=== PATIENT | female | born 1945 | race Caucasian/White ===

== ENCOUNTER → 2017-03-07 | Outpatient (CLI) | payer MEDICARE ==
[~2017-03-07] MED LIST: CHILDREN'S CLARI5 MG PO; FLONASE ALLERG9.9 ML NAS; FOSAMAX70 M1 PO; NEURONTIN100 MG PO; NORCO 5-325 TA1 EACH PO; OYSTER SHELL C1 EAC3 PO; PREDNISONE10 MG PO; ROBITUSSIN AC 110 ML PO; TRAMADOL HCL50 MG PO; TRAZODONE50 MG PO; VENTOLIN H0.09 MG/AC INH; VITAMIN D1000 IU PO; ZOFRAN4 MG PO
== END | disposition home or self-care (01) ==
LOC: RAD 11:55
DX: M19.032 Primary osteoarthritis, left wrist (principal)

== ENCOUNTER → 2017-03-20 | Outpatient (CLI) | payer MEDICARE | END | disposition home or self-care (01) | LOC: MAMMO 02-13 13:30 → US 02-13 14:00 → MAMMO 12:23 | DX: Z12.31 Encounter for screening mammogram for malignant neoplasm of breast (principal); I70.203 Unspecified atherosclerosis of native arteries of extremities, bilateral legs; M79.661 Pain in right lower leg; Z87.891 Personal history of nicotine dependence ==

== ENCOUNTER → 2017-05-26 | Outpatient (CLI) | payer MEDICARE | END | disposition home or self-care (01) | LOC: ORTHO 02:34 | DX: M19.031 Primary osteoarthritis, right wrist (principal) ==

== ENCOUNTER → 2017-06-17 | Outpatient (CLI) | payer MEDICARE ==
[~2017-06-17] MED LIST changes: +LORCET 5-325 M1 EACH PO; +RA VITAMIN D3 PO; -VITAMIN D1000 IU PO; +VITAMIN D31000 UNI1 PO
[2017-06-17 12:52] LABS: BASO # 0.1 10*3/uL (0.0-0.1); BASO % 0.5 % (0.0-1.0); EOS # 0.2 10*3/uL (0.0-0.4); EOS % 1.9 % (1.0-4.0); HEMATOCRIT 36.2 % (37.0-47.0); IG # 0.1 10*3/uL (0.0-0.1); LYMPH # 2.2 10*3/uL (1.3-4.4); LYMPH % 23.3 % (27.0-41.0); MEAN CELL VOLUME 92.8 fl (81.0-99.0); MEAN CORPUSCULAR HGB 30.8 pg (27.0-31.0); MEAN CORPUSCULAR HGB CONC 33.1 g/dl (33.0-37.0); MEAN PLATELET VOLUME 10.5 fl (9.6-12.3); MONO # 0.8 10*3/uL (0.1-1.0); MONO % 8.9 % (3.0-9.0); NEUT # 6.2 10*3/uL (2.3-7.9); NEUT % 64.9 % (47.0-73.0); PLATELET COUNT AUTOMATED 204 10*3/uL (130-400); RED CELL DISTRI WIDTH 13.6 % (0-14.5); WHITE BLOOD COUNT 9.5 10*3/uL (4.8-10.8)
[2017-06-17 13:20] LABS: BUN 18 mg/dl (7-24); CARBON DIOXIDE 28 mmol/L (21-32); CHLORIDE 108 mmol/L (98-107); EST GLOM FILT AFRICAN AMERICAN > 60 ml/min; GLUCOSE 84 mg/dL (65-99); POTASSIUM 3.8 mmol/L (3.5-5.1); SODIUM 138 mmol/L (136-145)
== END | disposition home or self-care (01) ==
LOC: LAB 10:59
PROVIDERS: Orthopaedic Surgery
DX: Z01.818 Encounter for other preprocedural examination (principal); G56.01 Carpal tunnel syndrome, right upper limb; Z87.891 Personal history of nicotine dependence

== ENCOUNTER → 2017-06-26 | Day surgery (SDC) | payer MEDICARE ==
[2017-06-17 11:32] VITALS: BP 121/64
[~2017-06-26] VITALS: Ht 160 cm; Wt 55.8 kg
[2017-06-26 07:02] VITALS: BP 135/65
[2017-06-26 08:09] VITALS: BP 131/68
[2017-06-26 08:40] VITALS: BP 134/73
== END | disposition home or self-care (01) ==
LOC: SDC 06-10 11:00
DX: G56.01 Carpal tunnel syndrome, right upper limb (principal); J44.9 Chronic obstructive pulmonary disease, unspecified; Z90.710 Acquired absence of both cervix and uterus; Z98.890 Other specified postprocedural states; Z80.9 Family history of malignant neoplasm, unspecified; Z87.891 Personal history of nicotine dependence

== ENCOUNTER 2017-10-01 11:47 | Inpatient (IN) | payer MEDICARE ==
[~2017-10-01] VITALS: Ht 160 cm; Wt 64.4 kg
--- NOTE | ~2017-10-01 | CON ---
[place], [place] REPORT OF CONSULTATION NAME: SABINA CABA UNIT #: [id number] ROOM: 406 DOCTOR: MIRI TREVINO MD BIRTHDATE: [birth year] DOS: ATTESTATION. This is an attestation note on a consult by Dr. Heard. IMRI TREVINO MD CM:CONSTR:REPORT OF CONSULTATION 1003 10/03/17 1303 interface
--- NOTE | ~2017-10-01 | CON ---
[place], [place] REPORT OF CONSULTATION [id number] UNIT #: [id number] ROOM: 406 DOCTOR: MARY ELLEN SANCHEZ MD BIRTHDATE: [birth year] DOS: 10/03/2017 HISTORY OF PRESENT ILLNESS: This is a 72-year-old patient who presented with chief complaint of atypical chest pain, underwent investigation. The pain is radiating her to her back and substernal and subxiphoid. Cardiologic workup has been done. Cardiac consultation has been done. PAST MEDICAL HISTORY: Associated with osteopenia and chronic lower back pain. PAST SURGICAL HISTORY: Cataract, hysterectomy, carpal tunnel. SOCIAL HISTORY: Has stopped smoking 4 months ago and she is considering herself and nonsmoker at all. Nonalcohol consumer. FAMILY HISTORY: Multi carcinoma. ALLERGIES: TO SULFA. HOME MEDICATIONS: Home medication was reviewed. The patient has been on antacid medication. She does not recall the name in specifically. On the other hand, she has been on alendronate sodium 70 mg p.o. every week. REVIEW OF SYSTEMS: HEENT: Denies double vision, blurred vision. RESPIRATORY: Denies acute shortness of breath; however, chronically short of breath and COPD pattern. CARDIOVASCULAR: Atypical chest pain, substernal pain. DIGESTIVE SYSTEM: Dyspepsia, epigastric distress. PHYSICAL EXAMINATION: VITAL SIGNS: Stable. HEENT: Head normocephalic, nontraumatic. Eyes: Pupils round, reactive. Sclerae nonicteric. Mouth and buccal mucosa benign. NECK: Supple, no thyromegaly, no cervical lymphadenopathy. CHEST: Symmetric anatomy, equal expansion. Decreased air entry bilaterally. HEART: Normal sinus rhythm, no gallop, no murmur. ABDOMEN: Soft. No hepato-organomegaly. Bowel sounds present. No pulsatile mass. EXTREMITIES: No cyanosis, no pedal edema. NEUROLOGIC: Alert, oriented to time, place, person. Sensory, motor intact. Cranial nerves 2-12 intact. IMPRESSION: Substernal pain, reflux symptomatology on alendronate possibility of Fosamax esophagitis. Other adjunctive diagnoses as outlined above. The patient's cardiac workup in progress. The patient has been found to be anemic that requires workup; however, she had breakfast this morning, full breakfast and she is not doable today and tomorrow, Friday and Friday only and therefore we can organize EGD, endoscopy, colonoscopy as outpatient. H and H at the time of admission was 10 and 33. [place], [place] REPORT OF CONSULTATION NAME: SABINA CABA [facility] #: [id number] UNIT #: [id number] ROOM: [facility] DOCTOR: LAURA LIZARRAGA,MARY ELLEN BIRTHDATE: [birth year] LABORATORY DATA: Chest x-ray, clear. Lipase was within normal limit. Comprehensive metabolic panel, electrolyte balance, liver function tests and troponins were all within normal limits. Her latest basic metabolic panel within normal limit. Her latest H and H 11 and 34 yesterday. PLAN AND DISCUSSION: I have reviewed the CTA of the chest, no aortic dissection, mild wall thickening of the distal esophagus was reported. Therefore, endoscopy as outpatient would be recommended. MARY ELLEN SANCHEZ MD CM:CONSTR:REPORT OF CONSULTATION 1008 10/03/17 1605 interface
[~2017-10-01 11:47] MED LIST changes: -NEURONTIN100 MG PO; +NEURONTIN300 MG PO
[2017-10-01 11:54] VITALS: BP 139/57
[2017-10-01 12:38] LABS: BASO % 0.4 % (0.0-1.0); EOS # 0.3 10*3/uL (0.0-0.4); EOS % 3.7 % (1.0-4.0); HEMOGLOBIN 10.8 g/dl (12.0-16.0); LYMPH # 1.8 10*3/uL (1.3-4.4); LYMPH % 25.1 % (27.0-41.0); MEAN CELL VOLUME 91.7 fl (81.0-99.0); MEAN CORPUSCULAR HGB CONC 32.7 g/dl (33.0-37.0); MONO # 0.8 10*3/uL (0.1-1.0); MONO % 11.6 % (3.0-9.0); NEUT # 4.1 10*3/uL (2.3-7.9); NEUT % 58.6 % (47.0-73.0); PLATELET COUNT AUTOMATED 231 10*3/uL (130-400); RED CELL DISTRI WIDTH 13.2 % (0-14.5); WHITE BLOOD COUNT 7.1 10*3/uL (4.8-10.8)
[2017-10-01 12:47] LABS: ACT PARTIAL THROMBO TIME 24.5 SECONDS (20.8-31.5); INTERNATIONAL NORM RATIO 0.9 (2.0-3.5)
[2017-10-01 12:55] LABS: ALBUMIN 3.4 gm/dl (3.1-4.5); ALKALINE PHOSPHATASE 86 U/L (45-117); BUN 9 mg/dl (7-24); CHLORIDE 110 mmol/L (98-107); CREATININE 0.96 mg/dL (0.55-1.02); POTASSIUM 4.1 mmol/L (3.5-5.1); SGOT/AST 15 IU/L (3-35); SGPT/ALT 20 U/L (12-78); SODIUM 144 mmol/L (136-145); TOTAL PROTEIN 6.6 gm/dL (6.4-8.2)
[2017-10-01 12:57] LABS: TROPONIN I < 0.015 ng/ml (<0.045)
--- NOTE | 2017-10-01 14:04 | NUR ---
AWAITING PATIENT RETURN FROM CT TO TAKE TO FLOOR, REPORT HAS BEEN CALLED
--- NOTE | 2017-10-01 14:35 | NUR ---
A 72, admitted to , under the services of ANATOLIY Garcia MD with a diagnosis of CHEST PAIN R/O ACUTE CO. Chief complaint is SOB. Patient arrived via bed from ER. Monitor applied. Initial assessment completed. Vital signs taken and recorded. ANATOLIY GARCIA MD notified of admission to the unit. Orders received. See assessment for past medical history, medications and allergies. Patient and/or family oriented to unit. [facility] visitation policy reviewed. Clothing/patient valuable form completed. GLORIA REEVES
[2017-10-01 14:40] VITALS: BP 145/86
[2017-10-01] MEDS ORDERED: SYMB160 INH (14:49)
[2017-10-01] MEDS ORDERED: PROAIR HFA8.5 GM INH (14:50)
--- NOTE | 2017-10-01 14:54 | NUR ---
Med rec was updated per [facility]
--- NOTE | 2017-10-01 14:54 | NUR ---
OFFICE STAFF WAS NOTIFIED OF DR. ROSARIO CONSULT. RESPONSE OF NOTIFICATION WAS OK I WILL GIVE IT TO DR TREVINO. GLORIA REEVES
[2017-10-01 16:00] VITALS: BP 137/72
[2017-10-01 20:00] VITALS: BP 140/63
--- NOTE | 2017-10-01 21:37 | NUR ---
MEDICATED WITH TYLENOL FOR COMPLAINTS OF A HEADACHE. WILL MONITOR FOR EFFECTIVENESS. CALL LIGHT IN REACH.
--- NOTE | 2017-10-01 23:45 | NUR ---
TYLENOL EFFECTIVE AT THIS TIME. RESTING IN BED WITH EYES CLOSED. NO SIGNS OR SYMPTOMS OF DISTRESS NOTED. CALL LIGHT IN REACH.
[2017-10-02 00:03] VITALS: BP 106/59
[2017-10-02 06:38] LABS: BASO % 0.6 % (0.0-1.0); EOS # 0.3 10*3/uL (0.0-0.4); EOS % 3.6 % (1.0-4.0); HEMATOCRIT 34.5 % (37.0-47.0); HEMOGLOBIN 11.1 g/dl (12.0-16.0); LYMPH # 1.3 10*3/uL (1.3-4.4); LYMPH % 18.8 % (27.0-41.0); MEAN CORPUSCULAR HGB 30.2 pg (27.0-31.0); MEAN CORPUSCULAR HGB CONC 32.2 g/dl (33.0-37.0); MEAN PLATELET VOLUME 10.5 fl (9.6-12.3); MONO # 0.8 10*3/uL (0.1-1.0); MONO % 11.4 % (3.0-9.0); NEUT # 4.6 10*3/uL (2.3-7.9); PLATELET COUNT AUTOMATED 228 10*3/uL (130-400); RED BLOOD COUNT 3.67 10*6/uL (4.10-5.10); RED CELL DISTRI WIDTH 13.2 % (0-14.5)
[2017-10-02 07:10] LABS: ALBUMIN 3.3 gm/dl (3.1-4.5); BUN 11 mg/dl (7-24); CHLORIDE 108 mmol/L (98-107); POTASSIUM 4.1 mmol/L (3.5-5.1); SGPT/ALT 19 U/L (12-78); SODIUM 142 mmol/L (136-145)
[2017-10-02 07:19] LABS: ALKALINE PHOSPHATASE 77 U/L (45-117); CHOLESTEROL 184 mg/dL (<200); HDL CHOLESTEROL 54 mg/dl (40-60); LDL CHOLESTEROL 104 mg/dL (9-159); PHOSPHOROUS 4.1 mg/dL (2.5-4.9); TOTAL PROTEIN 6.6 gm/dL (6.4-8.2); TRIGLYCERIDES 129 mg/dl (<150); VLDL CHOLESTEROL 26 mg/dL (6-40)
[2017-10-02 07:51] LABS: SGOT/AST 13 IU/L (3-35)
[2017-10-02 08:00] VITALS: BP 126/59
--- NOTE | 2017-10-02 08:30 | NUR ---
Stock And Station Agent in to talk to patient. Patient states lives at HOME ALONE with . There are 10 steps in the home. Physician: DR VICENTE Pharmacy: [facility] [place] Home health services: NONE Patient's level of ADLs: INDEPENDENT Patient has working utilities: YES DME: NONE Follow-up physician's appointment after d/c: PREFERS TO MAKE HER OWN APPT Does patient want to access PORTAL?: Discharge plan HOME. JORDON BELL
[2017-10-02 08:32] LABS: INTERNATIONAL NORM RATIO 0.9 (2.0-3.5)
[2017-10-02 08:45] LABS: VITAMIN D, 25-HYDROXY 29.8 ng/mL (30-100)
[2017-10-02 12:00] VITALS: BP 104/49
[2017-10-02 16:00] VITALS: BP 100/49
[2017-10-02 20:00] VITALS: BP 90/42
--- NOTE | 2017-10-02 20:27 | NUR ---
CALLED DOCTOR CANDELARIO ABOUT PATIENTS BP OF 90/42 MANUAL HE SAID OK NO NEW ORDRES AT THIS TIME.
--- NOTE | 2017-10-02 23:30 | NUR ---
TOOK OVER CARE OF PT AT THIS TIME, ASSESSMENT COMPLETE, RESPIRATIONS EASY AND UNLABORED. NO S/S OF PAIN OR DISTRESS. ALL NEEDS MET, ENCOURAGED USE OF CALL LIGHT.
[2017-10-03 01:11] VITALS: BP 84/48
--- NOTE | 2017-10-03 01:22 | NUR ---
NOTIFIED DR. PALOMINO OF PT LOW BLOOD PRESSURE READING. PT STATES THAT SHE FEELS FINE AND HAS NO OTHER SYMPTOMS. NO NEW ORDERS FROM PHYSICIAN AT THIS TIME. WILL CONTINUE TO MONITOR PT BLOOD PRESSURES AND PHYSICIAN STATES HE WILL BE UP TO SEE HER.
--- NOTE | 2017-10-03 03:00 | NUR ---
PT BLOOD PRESSURE RECHECKED. BP 92/50 AT THIS TIME, DR. PALOMINO AWARE. PT DOES NOT COMPLAIN OF ANY SYMPTOMS ASSOCIATED WITH HYPOTENSION. NO DIZZINESS NOTED. ADVISED TO CHANGE POSITIONS SLOWLY.
--- NOTE | 2017-10-03 06:00 | NUR ---
AM MEDICAITONS TAKEN WITH EASE. NO S/S OF DISTRESS. RESPIRATIONS EASY. PT ALERT ORIENTED AND PLEASANT. AMBULATING TO BATHROOM WITH NO PROBLEMS.
[2017-10-03 07:32] LABS: CHLORIDE 108 mmol/L (98-107); POTASSIUM 3.9 mmol/L (3.5-5.1); SODIUM 141 mmol/L (136-145)
[2017-10-03 07:41] LABS: BUN 16 mg/dl (7-24); CREATININE 1.02 mg/dL (0.55-1.02)
[2017-10-03 08:00] VITALS: BP 84/49
--- NOTE | 2017-10-03 08:19 | NUR ---
DR SANCHEZ NOTIFIED OF A CONSULT FOR ESOPHOGITIS AND DYSPHAGIA.
--- NOTE | 2017-10-03 09:59 | NUR ---
PT RECIEVED BREAKFAST TRAY PRIOR TO BEING TOLD SHE WOULD BE NPO FOR EGD AND WILL NOT BE ABLE TO HAVE THE TEXT TODAY. DR SANCHEZ ASKED TO CONTACT DR GARCIA AND SEE IF THE PT CAN BE SCHEDULED AN OUTPT ON ANOTHER DAY.
--- NOTE | 2017-10-03 10:05 | NUR ---
DR ALIRIO WYNN SHE WOULD TALK TO DR VICENTE TO SEE WHAT THE PLAN OF TREATMENT WILL BE.
[2017-10-03 12:00] VITALS: BP 111/42
[2017-10-03] MEDS ORDERED: PROTONIX40 MG PO (12:32)
[2017-10-03] MEDS ORDERED: Carafate1 GM PO (12:32)
--- NOTE | 2017-10-03 15:35 | NUR ---
Discharge instructions reviewed with patient/family. Patient receptive and verbalizes understanding. Follow-up care arranged. Written instructions given to patient/family. RACHID UFENTES
== END 2017-10-03 15:35 | disposition home or self-care (01) | DRG 392 ==
LOC: ED 11:47 → 4E 13:33 → EDHOLD 13:33 → 4E 13:42
PROVIDERS: Hospitalist; Student in an Organized Health Care Education/Training Program; ADMIT Internal Medicine
DX: K21.0 Gastro-esophageal reflux disease with esophagitis (principal); D64.9 Anemia, unspecified; R13.10 Dysphagia, unspecified; R07.2 Precordial pain; G56.00 Carpal tunnel syndrome, unspecified upper limb; M54.9 Dorsalgia, unspecified; E55.9 Vitamin D deficiency, unspecified; M85.80 Other specified disorders of bone density and structure, unspecified site; F17.210 Nicotine dependence, cigarettes, uncomplicated; G89.29 Other chronic pain; Z90.710 Acquired absence of both cervix and uterus; Z80.9 Family history of malignant neoplasm, unspecified; Z88.2 Allergy status to sulfonamides; Z79.51 Long term (current) use of inhaled steroids; Z79.899 Other long term (current) drug therapy; Z98.49 Cataract extraction status, unspecified eye

== ENCOUNTER → 2017-11-04 | Outpatient (CLI) | payer MEDICARE ==
[~2017-11-04] MED LIST changes: +Carafate1 GM PO; +PROAIR HFA8.5 GM INH; +PROTONIX40 MG PO; +SYMB160 INH
== END | disposition home or self-care (01) ==
LOC: ORTHO 00:58
DX: M18.12 Unilateral primary osteoarthritis of first carpometacarpal joint, left hand (principal); G56.02 Carpal tunnel syndrome, left upper limb; M25.832 Other specified joint disorders, left wrist

== ENCOUNTER → 2018-04-22 | Outpatient (CLI) | payer MEDICARE | END | disposition home or self-care (01) | LOC: ORTHO 02:52 | DX: M25.511 Pain in right shoulder (principal) ==

== ENCOUNTER → 2018-05-14 | Outpatient (CLI) | payer MEDICARE | END | disposition home or self-care (01) | LOC: MAMMO 07:31 | DX: Z12.31 Encounter for screening mammogram for malignant neoplasm of breast (principal); M25.561 Pain in right knee ==

== ENCOUNTER → 2018-10-29 | Outpatient (CLI) | payer OTHER ==
[~2018-10-29] MED LIST changes: +GABAPENTIN400 MG PO; +Percocet 325 MG1 TAB PO
--- NOTE | ~2018-10-29 | EKG ---
[place], [place] ELECTROCARDIOGRAM REPORT NAME: SABINA CABA UNIT #: [id number] ROOM: DOCTOR: EPIPHANY DRAFT REPORT BIRTHDATE: [birth year] [facility] Test Date: 2018-10-29 Test Time: 11:57:44 Pat Name: SABINA CABA Department: Room: Gender: F Oncology Patient Navigator: Donna Valiente : 1945 Requested By: FELICIANO DAVISON Order Number: [id number] Reading MD: Chay Carrizales MD Measurements Intervals [place] Rate: 87 P: 25 [place]: 118 QRS: 28 QRSD: 81 T: 18 QT: 391 QTc: 471 Interpretive Statements Sinus rhythm Borderline short [place] interval Low voltage, precordial leads Baseline wander in lead(s) I,II,aVR,aVL,aVF Electronically Signed On 11-04-2018 6:37:27 PST by Chay Carrizales MD CM:EKGRPT:ELECTROCARDIOGRAM REPORT [id number] FELICIANO WORKMAN DRAFT REPORT FELICIANO DAVISON DO
[2018-10-29 11:51] LABS: BILIRUBIN NEGATIVE (NEGATIVE); BLOOD TRACE-INTACT (NEGATIVE); CLARITY CLOUDY (CLEAR); COLOR YELLOW (YELLOW); GLUCOSE NEGATIVE (NEGATIVE); KETONE NEGATIVE (NEGATIVE); LEUKO ESTERASE NEGATIVE (NEGATIVE); NITRITE NEGATIVE (NEGATIVE); PH 5.5 (5.0-9.0); SPECIFIC GRAVITY >= 1.030 (1.005-1.030); UROBILINOGEN 0.2 E.U./dl (0.2-1.0)
[2018-10-29 11:55] LABS: BASO % 0.3 % (0.0-1.0); EOS # 0.1 10*3/uL (0.0-0.4); EOS % 1.1 % (1.0-4.0); HEMATOCRIT 37.7 % (37.0-47.0); HEMOGLOBIN 12.4 g/dl (12.0-16.0); LYMPH % 20.6 % (27.0-41.0); MEAN CORPUSCULAR HGB 30.9 pg (27.0-31.0); MEAN CORPUSCULAR HGB CONC 32.9 g/dl (33.0-37.0); MEAN PLATELET VOLUME 9.8 fl (9.6-12.3); MONO % 10.2 % (3.0-9.0); NEUT # 6.5 10*3/uL (2.3-7.9); NEUT % 67.1 % (47.0-73.0); PLATELET COUNT AUTOMATED 306 10*3/uL (130-400); RED BLOOD COUNT 4.01 10*6/uL (4.10-5.10); RED CELL DISTRI WIDTH 13.8 % (0-14.5); WHITE BLOOD COUNT 9.7 10*3/uL (4.8-10.8)
[2018-10-29 12:08] LABS: BACTERIA 1+; MUCOUS TRACE
[2018-10-29 12:28] LABS: ALBUMIN 3.4 gm/dl (3.1-4.5); ALKALINE PHOSPHATASE 93 U/L (45-117); BUN 14 mg/dl (7-24); CHLORIDE 107 mmol/L (98-107); POTASSIUM 4.2 mmol/L (3.5-5.1); SGOT/AST 15 IU/L (3-35); SGPT/ALT 28 U/L (12-78); SODIUM 142 mmol/L (136-145); TOTAL PROTEIN 7.3 gm/dL (6.4-8.2)
== END | disposition home or self-care (01) ==
PROVIDERS: Orthopaedic Surgery
DX: M19.011 Primary osteoarthritis, right shoulder (principal); M75.101 Unspecified rotator cuff tear or rupture of right shoulder, not specified as traumatic; M12.811 Other specific arthropathies, not elsewhere classified, right shoulder; M19.019 Primary osteoarthritis, unspecified shoulder; Z79.899 Other long term (current) drug therapy

== ENCOUNTER → 2018-11-05 | Day surgery (SDC) | payer OTHER ==
[2018-10-29 12:45] VITALS: BP 139/74
[~2018-11-05] VITALS: Ht 160 cm; Wt 70.3 kg
--- NOTE | ~2018-11-05 | O ---
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 PROCEDURE: Manipulation under anesthetic, Srini procedure, excision of the distal clavicle, subacromial decompression open. SURGEON: Feliciano Alfaro DO. BRIDGE RIGGER: Juan Manuel. ANESTHESIOLOGIST: NATHAN Perez. ANESTHESIA: General endotracheal with supraclavicular block. INDICATIONS: The patient is a 73-year-old female with a history of progressive chronic right shoulder pain and weakness. The patient failed conservative treatment of injections, physical therapy and anti-inflammatories. MRI indicated thickened capsule with synovitis. The risks and benefits of the procedure were explained to the patient preoperatively. Preoperative labs and x-rays were obtained. DESCRIPTION OF PROCEDURE: The right shoulder was marked in the holding area. The patient had a supraclavicular block performed by Anesthesia. The patient was brought to the operative suite. The patient was placed supine on the operative table. A general anesthetic with endotracheal intubation was performed. The right upper extremity was prepped and draped in the usual orthopedic fashion. A timeout was performed. The patient was taken through a range of motion and noted to have decreased flexion to approximately 100 and abduction to 90. A gentle manipulation was performed under anesthetic to full flexion and full abduction. The patient received Ancef 2 grams IV piggyback. The incision was planned between the anterior acromion to the coracoid process. The area was injected with Marcaine 0.5% with epinephrine. The incision was made sharply with a scalpel. Subcutaneous tissue was spread down to the deltoid fascia. The deltoid fascia was divided along its fibers. The deltoid muscle was identified and divided between the anterior and the lateral fibers. The coracoacromial ligament was identified and released. The anterior portion of the acromion was removed using an osteotome and then smoothed gently with an oscillating rasp. The attention was then turned to the distal clavicle. Palpation revealed spurring of the clavicle, inferiorly. The capsule was removed from the distal clavicle. The distal clavicle was exposed and noted to have degenerative changes. The oscillating saw was used to remove the distal 1 cm of clavicle. The oscillating rasp was then used to smooth the undersurface of the clavicle. The area was copiously irrigated with normal saline. The acromioclavicular [place], [place] OPERATIVE NOTE NAME: SABINA CABA UNIT #: [id number] ROOM: DOCTOR: FELICIANO ALFARO DO BIRTHDATE: [birth year] capsule was repaired with 0 Vicryl. The deltoid muscle was returned to its normal position. The deltoid fascia was repaired. The subcutaneous tissue was repaired with 3-0 Vicryl. The closure was completed with jeramy. The area was again injected with Marcaine 0.5% with epinephrine. The wound was covered with Xeroform, 4 x 4s, ABDs and Tegaderm. The patient was placed in a sling. The anesthetic was reversed. The patient was extubated and taken to the recovery room in satisfactory condition. Sponge and needle count correct. ESTIMATED BLOOD LOSS: 25 mL. FINDINGS: Right shoulder adhesive capsulitis, acromioclavicular joint degenerative changes, subacromial impingement syndrome. DRAINS: None. PACKINGS: None. COMPLICATIONS: None. FELICIANO ALFARO DO CM:OPRECORD:OPERATIVE NOTE [id number] FELICIANO ALFARO DO 11/19/18 1140 interface
[2018-11-05 08:08] VITALS: BP 152/81
[2018-11-05 10:28] VITALS: BP 167/71
[2018-11-05 10:43] VITALS: BP 148/76
[2018-11-05 10:58] VITALS: BP 138/78
[2018-11-05 11:13] VITALS: BP 144/73
[2018-11-05 11:28] VITALS: BP 138/65
== END | disposition home or self-care (01) ==
LOC: SDC 10-29 12:30
DX: M19.011 Primary osteoarthritis, right shoulder (principal); M75.41 Impingement syndrome of right shoulder; M75.01 Adhesive capsulitis of right shoulder; M25.711 Osteophyte, right shoulder; J44.9 Chronic obstructive pulmonary disease, unspecified; Z98.890 Other specified postprocedural states; Z90.710 Acquired absence of both cervix and uterus; Z82.3 Family history of stroke; Z79.899 Other long term (current) drug therapy; Z88.1 Allergy status to other antibiotic agents; Z88.2 Allergy status to sulfonamides; Z87.891 Personal history of nicotine dependence; Z87.442 Personal history of urinary calculi; Z98.41 Cataract extraction status, right eye; Z98.42 Cataract extraction status, left eye

== ENCOUNTER → 2018-11-16 | Outpatient (CLI) | payer OTHER | END | disposition home or self-care (01) | LOC: ORTHO 02:13 | DX: M16.12 Unilateral primary osteoarthritis, left hip (principal) ==

== ENCOUNTER → 2018-12-03 | Outpatient (CLI) | payer OTHER | END | disposition home or self-care (01) | LOC: US 09:43 | DX: R31.9 Hematuria, unspecified (principal) ==

== ENCOUNTER → 2019-03-31 | Day surgery (SDC) | payer OTHER ==
[2019-03-31 10:49] LABS: ACT PARTIAL THROMBO TIME 25.1 SECONDS (20.0-32.1); INTERNATIONAL NORM RATIO 0.9 (2.0-3.5)
== END | disposition home or self-care (01) ==
LOC: SDC 01:50
PROVIDERS: Internal Medicine
DX: M16.12 Unilateral primary osteoarthritis, left hip (principal); M25.552 Pain in left hip; M87.052 Idiopathic aseptic necrosis of left femur; Z88.2 Allergy status to sulfonamides; Z88.1 Allergy status to other antibiotic agents; Z90.710 Acquired absence of both cervix and uterus; Z98.890 Other specified postprocedural states; Z79.899 Other long term (current) drug therapy; Z82.3 Family history of stroke; Z80.8 Family history of malignant neoplasm of other organs or systems; Z79.01 Long term (current) use of anticoagulants

== ENCOUNTER 2019-07-15 22:06 | Emergency (ER) | payer OTHER ==
[~2019-07-15] VITALS: Wt 66.7 kg
--- NOTE | ~2019-07-15 | EKG ---
[place], [place] ELECTROCARDIOGRAM REPORT NAME: SABINA CABA UNIT #: [id number] ROOM: DOCTOR: RICAANY DRAFT REPORT BIRTHDATE: [birth year] [facility] Test Date: 2019-07-15 Test Time: 23:03:24 Pat Name: SABINA CABA Department: Room: Gender: F Director Of Strategic Sourcing: Kimmy Powers : 1945 Requested By: [place] ALEMAN Order Number: [id number] Reading MD: Kamila Lanier MD Measurements Intervals [place] Rate: 108 P: 34 [place]: 125 QRS: 13 QRSD: 118 T: -2 QT: 393 QTc: 527 Interpretive Statements Sinus tachycardia Nonspecific intraventricular conduction delay Low voltage, precordial leads Borderline ST depression, lateral leads Compared to ECG 10/29/2018 11:57:44 Intraventricular conduction delay now present ST (T wave) deviation now present Sinus rhythm no longer present Electronically Signed On 07-19-2019 17:56:20 PDT by Kamila Lanier MD CM:EKGRPT:ELECTROCARDIOGRAM REPORT [id number] [place] PELAEZ [facility] DRAFT REPORT [place] PELAEZ
[2019-07-15 23:10] LABS: BASO % 0.4 % (0.0-1.0); EOS # 0.2 10*3/uL (0.0-0.4); EOS % 2.5 % (1.0-4.0); HEMATOCRIT 33.3 % (37.0-47.0); HEMOGLOBIN 10.8 g/dl (12.0-16.0); LYMPH # 2.1 10*3/uL (1.3-4.4); MEAN CELL VOLUME 92.2 fl (81.0-99.0); MEAN CORPUSCULAR HGB 29.9 pg (27.0-31.0); MEAN CORPUSCULAR HGB CONC 32.4 g/dl (33.0-37.0); MEAN PLATELET VOLUME 11.2 fl (9.6-12.3); MONO # 1.2 10*3/uL (0.1-1.0); MONO % 13.8 % (3.0-9.0); NEUT # 4.8 10*3/uL (2.3-7.9); NEUT % 57.9 % (47.0-73.0); PLATELET COUNT AUTOMATED 221 10*3/uL (130-400); RED BLOOD COUNT 3.61 10*6/uL (4.10-5.10); RED CELL DISTRI WIDTH 13.6 % (0-14.5); WHITE BLOOD COUNT 8.3 10*3/uL (4.8-10.8)
[2019-07-15 23:21] LABS: ACT PARTIAL THROMBO TIME 25.7 SECONDS (20.0-32.1); INTERNATIONAL NORM RATIO 0.9 (2.0-3.5)
[2019-07-15 23:26] LABS: BILIRUBIN NEGATIVE (NEGATIVE); BLOOD TRACE-INTACT (NEGATIVE); CLARITY SL CLOUDY (CLEAR); COLOR YELLOW (YELLOW); GLUCOSE NEGATIVE (NEGATIVE); KETONE NEGATIVE (NEGATIVE); LEUKO ESTERASE NEGATIVE (NEGATIVE); NITRITE NEGATIVE (NEGATIVE); PH 5.5 (5.0-9.0); SPECIFIC GRAVITY 1.025 (1.005-1.030); UROBILINOGEN 0.2 E.U./dl (0.2-1.0)
[2019-07-15 23:27] LABS: ALBUMIN 3.3 gm/dl (3.1-4.5); ALKALINE PHOSPHATASE 94 U/L (45-117); BUN 18 mg/dl (7-24); CHLORIDE 109 mmol/L (98-107); CREATININE 1.49 mg/dL (0.55-1.02); LIPASE 147 U/L (73-393); SGOT/AST 21 IU/L (3-35); SGPT/ALT 31 U/L (12-78); SODIUM 141 mmol/L (136-145); TOTAL PROTEIN 6.7 gm/dL (6.4-8.2)
[2019-07-15 23:30] LABS: TROPONIN I < 0.015 ng/ml (<0.045)
[2019-07-15 23:34] LABS: BACTERIA 1+; CALCIUM OXALATE CRYSTALS 4+; RBC 0-2 rbc/hpf (0-2); WBC 0-2 wbc/hpf (0-5)
[2019-07-15 23:35] LABS: MUCOUS TRACE
== END 2019-07-16 01:40 | disposition home or self-care (01) ==
LOC: ED 22:06
PROVIDERS: Physician Assistant
DX: J02.9 Acute pharyngitis, unspecified (principal); R05 Cough; M79.10 Myalgia, unspecified site; H92.01 Otalgia, right ear; R79.1 Abnormal coagulation profile; R68.83 Chills (without fever); Z87.891 Personal history of nicotine dependence; Z88.2 Allergy status to sulfonamides; Z79.899 Other long term (current) drug therapy

== ENCOUNTER → 2019-09-06 | Outpatient (CLI) | payer OTHER | END | disposition home or self-care (01) | LOC: US 15:26 | DX: M79.605 Pain in left leg (principal); R60.0 Localized edema ==

== ENCOUNTER 2019-09-23 18:02 | Emergency (ER) | payer OTHER ==
[~2019-09-23] VITALS: Ht 160 cm; Wt 66.7 kg
[2019-09-23 18:45] LABS: BASO % 0.4 % (0.0-1.0); EOS # 0.1 10*3/uL (0.0-0.4); EOS % 1.9 % (1.0-4.0); HEMATOCRIT 30.9 % (37.0-47.0); HEMOGLOBIN 9.5 g/dl (12.0-16.0); LYMPH # 2.3 10*3/uL (1.3-4.4); LYMPH % 30.8 % (27.0-41.0); MEAN CELL VOLUME 94.5 fl (81.0-99.0); MEAN CORPUSCULAR HGB 29.1 pg (27.0-31.0); MEAN CORPUSCULAR HGB CONC 30.7 g/dl (33.0-37.0); MEAN PLATELET VOLUME 11.1 fl (9.6-12.3); MONO # 0.9 10*3/uL (0.1-1.0); MONO % 12.4 % (3.0-9.0); NEUT # 4.1 10*3/uL (2.3-7.9); NEUT % 54.2 % (47.0-73.0); PLATELET COUNT AUTOMATED 302 10*3/uL (130-400); RED BLOOD COUNT 3.27 10*6/uL (4.10-5.10); WHITE BLOOD COUNT 7.5 10*3/uL (4.8-10.8)
[2019-09-23 18:58] LABS: ACT PARTIAL THROMBO TIME 23.9 SECONDS (20.0-32.1); INTERNATIONAL NORM RATIO 0.9 (2.0-3.5)
[2019-09-23 19:00] LABS: ALBUMIN 3.3 gm/dl (3.1-4.5); ALKALINE PHOSPHATASE 88 U/L (45-117); BUN 19 mg/dl (7-24); CHLORIDE 109 mmol/L (98-107); CREATININE 1.38 mg/dL (0.55-1.02); LIPASE 123 U/L (73-393); POTASSIUM 3.9 mmol/L (3.5-5.1); SGOT/AST 22 IU/L (3-35); SGPT/ALT 19 U/L (12-78); SODIUM 141 mmol/L (136-145); TOTAL PROTEIN 6.6 gm/dL (6.4-8.2); TROPONIN I < 0.015 ng/ml (<0.045)
[2019-09-23 20:23] LABS: BILIRUBIN NEGATIVE (NEGATIVE); BLOOD NEGATIVE (NEGATIVE); CLARITY SL CLOUDY (CLEAR); COLOR YELLOW (YELLOW); GLUCOSE NEGATIVE (NEGATIVE); KETONE TRACE (NEGATIVE); LEUKO ESTERASE NEGATIVE (NEGATIVE); NITRITE NEGATIVE (NEGATIVE); PH 7.5 (5.0-9.0); UROBILINOGEN 0.2 E.U./dl (0.2-1.0)
[2019-09-23 20:30] LABS: BACTERIA 4+; EPITHELIAL CELLS 0-2; WBC 0-2 wbc/hpf (0-5)
== END 2019-09-23 22:34 | disposition home or self-care (01) ==
LOC: ED 18:02
PROVIDERS: Physician Assistant
DX: M54.5 Low back pain (principal); R07.81 Pleurodynia; J44.9 Chronic obstructive pulmonary disease, unspecified; R79.1 Abnormal coagulation profile; Z96.641 Presence of right artificial hip joint; Z88.2 Allergy status to sulfonamides; Z79.899 Other long term (current) drug therapy; Z90.710 Acquired absence of both cervix and uterus; Z87.891 Personal history of nicotine dependence; Z87.442 Personal history of urinary calculi

== ENCOUNTER → 2019-12-02 | Outpatient (CLI) | payer OTHER | END | disposition home or self-care (01) | LOC: MAMMO 09:53 | DX: Z12.31 Encounter for screening mammogram for malignant neoplasm of breast (principal) ==

== ENCOUNTER 2020-06-16 19:12 | Emergency (ER) | payer OTHER ==
[~2020-06-16] VITALS: Ht 160 cm; Wt 65.8 kg
[2020-06-16 20:11] LABS: BASO % 0.2 % (0.0-1.0); EOS # 0.1 10*3/uL (0.0-0.4); HEMATOCRIT 35.6 % (37.0-47.0); LYMPH # 0.5 10*3/uL (1.3-4.4); MEAN CELL VOLUME 93.4 fl (81.0-99.0); MEAN CORPUSCULAR HGB 30.2 pg (27.0-31.0); MEAN CORPUSCULAR HGB CONC 32.3 g/dl (33.0-37.0); MEAN PLATELET VOLUME 10.1 fl (9.6-12.3); MONO # 0.7 10*3/uL (0.1-1.0); MONO % 8.3 % (3.0-9.0); NEUT # 7.3 10*3/uL (2.3-7.9); NEUT % 84.2 % (47.0-73.0); PLATELET COUNT AUTOMATED 244 10*3/uL (130-400); RED BLOOD COUNT 3.81 10*6/uL (4.10-5.10); RED CELL DISTRI WIDTH 13.8 % (0-14.5); WHITE BLOOD COUNT 8.7 10*3/uL (4.8-10.8)
[2020-06-16 20:28] LABS: ALBUMIN 3.4 gm/dl (3.1-4.5); ALKALINE PHOSPHATASE 88 U/L (45-117); BUN 12 mg/dl (7-24); CHLORIDE 107 mmol/L (98-107); CREATININE 1.42 mg/dL (0.55-1.02); POTASSIUM 4.1 mmol/L (3.5-5.1); SGOT/AST 23 IU/L (3-35); SGPT/ALT 37 U/L (12-78); SODIUM 136 mmol/L (136-145); TOTAL PROTEIN 6.9 gm/dL (6.4-8.2)
[2020-06-16 20:30] LABS: TROPONIN I < 0.015 ng/ml (<0.045)
[2020-06-16 23:04] LABS: BILIRUBIN NEGATIVE; BLOOD NEGATIVE (NEGATIVE); CLARITY CLEAR (CLEAR); COLOR YELLOW (YELLOW); GLUCOSE NEGATIVE; KETONE NEGATIVE; LEUKO ESTERASE 1+ (NEGATIVE); NITRITE NEGATIVE (NEGATIVE); PH 8.5 (5.0-9.0); SPECIFIC GRAVITY 1.015 (1.005-1.030); UROBILINOGEN 0.2 E.U./dl (0.2-1.0)
[2020-06-16 23:08] LABS: BACTERIA TRACE
[2020-06-17] MEDS ORDERED: MACROBID100 M1 PO (00:31)
[2020-06-17] MEDS ORDERED: ZOFRAN4 MG PO (00:31)
[2020-06-17] MEDS ORDERED: KEFLEX500 M1 PO (00:37)
== END 2020-06-17 00:54 | disposition home or self-care (01) ==
LOC: ED 19:12
PROVIDERS: Emergency Medicine Emergency Medical Services
DX: N39.0 Urinary tract infection, site not specified (principal); R50.9 Fever, unspecified; R19.7 Diarrhea, unspecified; Z20.828 Contact with and (suspected) exposure to other viral communicable diseases; Z88.2 Allergy status to sulfonamides; Z79.899 Other long term (current) drug therapy; Z72.0 Tobacco use

== ENCOUNTER 2020-10-05 10:00 | Emergency (ER) | payer OTHER ==
[~2020-10-05] VITALS: Ht 160 cm; Wt 65.8 kg
[~2020-10-05 10:00] MED LIST changes: +KEFLEX500 M1 PO; +MACROBID100 M1 PO
== END 2020-10-05 12:02 | disposition home or self-care (01) ==
LOC: ED 10:00
DX: S62.306A Unspecified fracture of fifth metacarpal bone, right hand, initial encounter for closed fracture (principal); S62.616A Displaced fracture of proximal phalanx of right little finger, initial encounter for closed fracture; Z88.2 Allergy status to sulfonamides; Z79.899 Other long term (current) drug therapy; X58.XXXA Exposure to other specified factors, initial encounter; Y93.89 Activity, other specified; Y92.89 Other specified places as the place of occurrence of the external cause; Y99.8 Other external cause status

== ENCOUNTER → 2021-03-20 | Outpatient (CLI) | payer OTHER | END | disposition home or self-care (01) | LOC: RAD 08:45 | PROVIDERS: ATTEND Nurse Practitioner Family | DX: Z13.820 Encounter for screening for osteoporosis (principal); M81.0 Age-related osteoporosis without current pathological fracture ==

== ENCOUNTER → 2021-07-06 | Outpatient (CLI) | payer OTHER ==
[2021-07-06 11:56] LABS: BASO % 0.4 % (0.0-1.0); EOS # 0.2 10*3/uL (0.0-0.4); EOS % 1.6 % (1.0-4.0); HEMATOCRIT 36.9 % (37.0-47.0); LYMPH # 1.9 10*3/uL (1.3-4.4); MEAN CELL VOLUME 92.7 fl (81.0-99.0); MEAN CORPUSCULAR HGB 29.4 pg (27.0-31.0); MEAN CORPUSCULAR HGB CONC 31.7 g/dl (33.0-37.0); MEAN PLATELET VOLUME 9.7 fl (9.6-12.3); MONO # 0.9 10*3/uL (0.1-1.0); MONO % 8.4 % (3.0-9.0); NEUT # 7.4 10*3/uL (2.3-7.9); PLATELET COUNT AUTOMATED 243 10*3/uL (130-400); RED BLOOD COUNT 3.98 10*6/uL (4.10-5.10); RED CELL DISTRI WIDTH 13.6 % (0-14.5); WHITE BLOOD COUNT 10.5 10*3/uL (4.8-10.8)
== END | disposition home or self-care (01) ==
LOC: LAB 11:41
PROVIDERS: ATTEND Orthopaedic Surgery
DX: M25.59 Pain in other specified joint (principal)

== ENCOUNTER → 2022-05-01 | Outpatient (CLI) | payer OTHER ==
[2022-05-01 11:25] LABS: HEMATOCRIT 38.2 % (37.0-47.0); MEAN CELL VOLUME 94.6 fl (81.0-99.0); MEAN CORPUSCULAR HGB 30.9 pg (27.0-31.0); MEAN CORPUSCULAR HGB CONC 32.7 g/dl (33.0-37.0); MEAN PLATELET VOLUME 10.7 fl (9.6-12.3); RED BLOOD COUNT 4.04 10*6/uL (4.10-5.10); RED CELL DISTRI WIDTH 13.7 % (0-14.5); WHITE BLOOD COUNT 11.4 10*3/uL (4.8-10.8)
[2022-05-01 11:42] LABS: ALKALINE PHOSPHATASE 75 U/L (45-117); BUN 21 mg/dl (7-24); CHLORIDE 111 mmol/L (98-107); CREATININE 1.13 mg/dL (0.55-1.02); POTASSIUM 4.4 mmol/L (3.5-5.1); SGOT/AST 17 IU/L (3-35); SGPT/ALT 32 U/L (12-78); SODIUM 141 mmol/L (136-145); TOTAL PROTEIN 6.9 gm/dL (6.4-8.2)
[2022-05-02 16:08] LABS: t-TRANSGLUTAMINASE (tTG) IGA <2 U/mL (0-3); t-TRANSGLUTAMINASE (tTG) IgG 8 U/mL (0-5)
[2022-05-02 17:07] LABS: ENDOMYSIAL ANTIBODY IgA Negative (Negative)
[2022-05-06 15:06] LABS: FATS, NEUTRAL Normal (.); FATS, TOTAL Normal (.)
== END | disposition home or self-care (01) ==
LOC: LAB 10:47 → MAMMO 11:30
PROVIDERS: Nurse Practitioner Family; ATTEND Nurse Practitioner Family
DX: Z12.31 Encounter for screening mammogram for malignant neoplasm of breast (principal); R19.7 Diarrhea, unspecified

== ENCOUNTER → 2022-09-25 | Outpatient (CLI) | payer OTHER ==
[~2022-09-25] MED LIST changes: +GABAPENTIN600 MG PO; +MELOXICAM15 MG PO; +OMNICEF300 MG PO; +Synthroid,Levo25 MCG PO
== END | disposition home or self-care (01) ==
LOC: ORTHO 01:19
PROVIDERS: ATTEND Orthopaedic Surgery
DX: M16.11 Unilateral primary osteoarthritis, right hip (principal)

== ENCOUNTER → 2022-11-04 | Outpatient (CLI) | payer OTHER | END | disposition home or self-care (01) | LOC: RAD 08:54 | PROVIDERS: ATTEND Podiatrist Foot & Ankle Surgery | DX: S92.325G Nondisplaced fracture of second metatarsal bone, left foot, subsequent encounter for fracture with delayed healing (principal); M25.774 Osteophyte, right foot; M25.775 Osteophyte, left foot; M25.872 Other specified joint disorders, left ankle and foot; M25.871 Other specified joint disorders, right ankle and foot; X58.XXXD Exposure to other specified factors, subsequent encounter ==

== ENCOUNTER → 2022-11-13 | Outpatient (CLI) | payer OTHER | END | disposition home or self-care (01) | LOC: MRI 02:36 | PROVIDERS: ATTEND Orthopaedic Surgery | DX: M47.816 Spondylosis without myelopathy or radiculopathy, lumbar region (principal); M48.061 Spinal stenosis, lumbar region without neurogenic claudication; M51.26 Other intervertebral disc displacement, lumbar region ==

== ENCOUNTER → 2023-06-25 | Outpatient (CLI) | payer OTHER | END | disposition home or self-care (01) | LOC: RAD 12:32 | PROVIDERS: ATTEND Podiatrist Foot & Ankle Surgery | DX: M19.072 Primary osteoarthritis, left ankle and foot (principal); M77.32 Calcaneal spur, left foot ==

== ENCOUNTER 2023-10-27 13:40 | Emergency (ER) | payer OTHER ==
[~2023-10-27] VITALS: Ht 154.9 cm; Wt 72.6 kg
[2023-10-27 16:55] LABS: BASO % 0.4 % (0.0-1.0); EOS # 0.3 10*3/uL (0.0-0.4); EOS % 4.1 % (1.0-4.0); LYMPH # 2.3 10*3/uL (1.3-4.4); LYMPH % 31.1 % (27.0-41.0); MEAN CELL VOLUME 94.9 fl (81.0-99.0); MEAN CORPUSCULAR HGB 30.3 pg (27.0-31.0); MEAN PLATELET VOLUME 10.4 fl (9.6-12.3); MONO # 1.1 10*3/uL (0.1-1.0); MONO % 15.6 % (3.0-9.0); NEUT # 3.5 10*3/uL (2.3-7.9); NEUT % 48.5 % (47.0-73.0); PLATELET COUNT AUTOMATED 228 10*3/uL (130-400); RED BLOOD COUNT 4.32 10*6/uL (4.10-5.10); RED CELL DISTRI WIDTH 12.9 % (0-14.5); WHITE BLOOD COUNT 7.3 10*3/uL (4.8-10.8)
[2023-10-27 17:13] LABS: POTASSIUM 3.9 mmol/L (3.4-5.1); TOTAL PROTEIN 7.2 gm/dL (6.0-8.0)
[2023-10-27 18:14] LABS: BILIRUBIN Negative (Negative); BLOOD Trace-Lysed (Negative); CLARITY Clear (Clear); COLOR Yellow (Yellow); GLUCOSE Negative (Negative); KETONE Trace (Negative); LEUKO ESTERASE Trace (Negative); NITRITE Negative (Negative); PH 5.5 (4.5-8.0); UROBILINOGEN 0.2 E.U./dl (0.0-1.0)
[2023-10-27 18:31] LABS: CALCIUM OXALATE CRYSTALS 1+; RBC 0-2 rbc/hpf (0-2)
[2023-10-27] MEDS ORDERED: PREDNISONE10 MG PO (19:18)
== END 2023-10-27 19:21 | disposition home or self-care (01) ==
LOC: ED 13:40
PROVIDERS: Physician Assistant Medical
DX: J06.9 Acute upper respiratory infection, unspecified (principal); E03.9 Hypothyroidism, unspecified; Z88.2 Allergy status to sulfonamides; Z90.710 Acquired absence of both cervix and uterus; Z90.49 Acquired absence of other specified parts of digestive tract; Z98.890 Other specified postprocedural states; Z87.442 Personal history of urinary calculi; Z72.0 Tobacco use; J44.9 Chronic obstructive pulmonary disease, unspecified; Z79.899 Other long term (current) drug therapy; Z20.822 Contact with and (suspected) exposure to COVID-19

== ENCOUNTER → 2023-12-08 | Outpatient (CLI) | payer OTHER | END | disposition home or self-care (01) | LOC: MAMMO 01:38 | PROVIDERS: ATTEND Physician Assistant | DX: Z12.31 Encounter for screening mammogram for malignant neoplasm of breast (principal); M81.0 Age-related osteoporosis without current pathological fracture; R63.4 Abnormal weight loss; E55.9 Vitamin D deficiency, unspecified; Z90.710 Acquired absence of both cervix and uterus; Z96.642 Presence of left artificial hip joint ==

== ENCOUNTER → 2024-01-28 | Outpatient (CLI) | payer OTHER | END | disposition home or self-care (01) | LOC: US 02:30 | PROVIDERS: ATTEND Internal Medicine Cardiovascular Disease | DX: I65.23 Occlusion and stenosis of bilateral carotid arteries (principal); I51.5 Myocardial degeneration ==

== ENCOUNTER → 2024-02-03 | Outpatient (CLI) | payer OTHER ==
[~2024-02-03] MED LIST changes: +Regadenoson 0.4 MG/5 ML SYR IV ONE
== END | disposition home or self-care (01) ==
LOC: CARD 01:28
PROVIDERS: ATTEND Internal Medicine Cardiovascular Disease
DX: I51.5 Myocardial degeneration (principal); R93.89 Abnormal findings on diagnostic imaging of other specified body structures; R06.09 Other forms of dyspnea; R06.02 Shortness of breath

== ENCOUNTER → 2024-02-06 | Outpatient (CLI) | payer OTHER ==
[~2024-02-06] MED LIST changes: +IOHEXOL 350 MG/ML 100 ML VIAL IV ONE; -Regadenoson 0.4 MG/5 ML SYR IV ONE; +SODIUM CHLORIDE 0.9% 100 ML BAG IV ONE
== END | disposition home or self-care (01) ==
LOC: CT 00:26
PROVIDERS: ATTEND Internal Medicine Cardiovascular Disease
DX: I65.23 Occlusion and stenosis of bilateral carotid arteries (principal); R91.1 Solitary pulmonary nodule

== ENCOUNTER → 2024-02-17 | Outpatient (CLI) | payer OTHER ==
[~2024-02-17] MED LIST changes: -IOHEXOL 350 MG/ML 100 ML VIAL IV ONE; -SODIUM CHLORIDE 0.9% 100 ML BAG IV ONE
== END | disposition home or self-care (01) ==
LOC: RAD 02:38
PROVIDERS: ATTEND Physician Assistant
DX: M25.552 Pain in left hip (principal); Z96.642 Presence of left artificial hip joint

== ENCOUNTER 2024-05-15 05:28 | Emergency (ER) | payer OTHER ==
[~2024-05-15] VITALS: Ht 154.9 cm; Wt 72.6 kg
[2024-05-15 06:23] LABS: BASO % 0.3 % (0.0-1.0); EOS % 0.3 % (1.0-4.0); LYMPH % 16.3 % (27.0-41.0); MEAN CELL VOLUME 94.4 fl (81.0-99.0); MEAN CORPUSCULAR HGB 30.9 pg (27.0-31.0); MEAN CORPUSCULAR HGB CONC 32.7 g/dl (33.0-37.0); MEAN PLATELET VOLUME 11.2 fl (9.6-12.3); MONO # 1.1 10*3/uL (0.1-1.0); MONO % 17.5 % (3.0-9.0); NEUT # 4.1 10*3/uL (2.3-7.9); NEUT % 65.4 % (47.0-73.0); PLATELET COUNT AUTOMATED 165 10*3/uL (130-400); RED BLOOD COUNT 3.92 10*6/uL (4.10-5.10); WHITE BLOOD COUNT 6.3 10*3/uL (4.8-10.8)
[2024-05-15 06:46] LABS: POTASSIUM 3.9 mmol/L (3.4-5.1); TOTAL PROTEIN 6.7 gm/dL (6.0-8.0)
[2024-05-15] MEDS ORDERED: DEXAMETHASONE6 MG PO (07:10)
[2024-05-15] MEDS ORDERED: DEXAMETHASONE 4 MG TAB PO ONE (07:10)
== END 2024-05-15 07:09 | disposition home or self-care (01) ==
LOC: ED 05:28
PROVIDERS: Internal Medicine
DX: U07.1 COVID-19 (principal); J44.9 Chronic obstructive pulmonary disease, unspecified; Z87.442 Personal history of urinary calculi; Z88.2 Allergy status to sulfonamides; Z90.710 Acquired absence of both cervix and uterus; Z98.890 Other specified postprocedural states; Z72.0 Tobacco use

== ENCOUNTER → 2024-07-15 | Outpatient (CLI) | payer MEDICARE, OTHER ==
[~2024-07-15] MED LIST changes: +DEXAMETHASONE6 MG PO; +IOHEXOL 300 MG/ML 100 ML VIAL IV ONE
== END | disposition home or self-care (01) ==
LOC: CT 01:16
PROVIDERS: ATTEND Physician Assistant
DX: R91.1 Solitary pulmonary nodule (principal); U07.1 COVID-19; I51.5 Myocardial degeneration; F17.201 Nicotine dependence, unspecified, in remission

== ENCOUNTER → 2025-01-20 | Outpatient (CLI) | payer OTHER ==
[~2025-01-20] MED LIST changes: -IOHEXOL 300 MG/ML 100 ML VIAL IV ONE
[2025-01-20 10:13] LABS: BASO % 0.4 % (0.0-1.0); EOS # 0.2 10*3/uL (0.0-0.4); EOS % 2.2 % (1.0-4.0); MEAN CELL VOLUME 93.2 fl (81.0-99.0); MEAN CORPUSCULAR HGB 30.7 pg (27.0-31.0); MEAN PLATELET VOLUME 10.4 fl (9.6-12.3); MONO # 0.8 10*3/uL (0.1-1.0); MONO % 11.8 % (3.0-9.0); NEUT # 4.1 10*3/uL (2.3-7.9); NEUT % 59.5 % (47.0-73.0); PLATELET COUNT AUTOMATED 176 10*3/uL (130-400); RED BLOOD COUNT 3.97 10*6/uL (4.10-5.10); RED CELL DISTRI WIDTH 13.7 % (0-14.5); WHITE BLOOD COUNT 6.9 10*3/uL (4.8-10.8)
[2025-01-20 10:47] LABS: ALKALINE PHOSPHATASE 89 U/L (46-116); BUN 15 mg/dl (9-23); CHLORIDE 107 mmol/L (98-107); CHOLESTEROL 170 mg/dL (<200); LDL CHOLESTEROL 111 mg/dL (9-159); POTASSIUM 4.2 mmol/L (3.4-5.1); SGPT/ALT 29 U/L (5-49)
== END | disposition home or self-care (01) ==
LOC: US 01-19 15:00 → LAB 09:09
PROVIDERS: Internal Medicine; ATTEND Orthopaedic Surgery
DX: M18.12 Unilateral primary osteoarthritis of first carpometacarpal joint, left hand (principal); M19.042 Primary osteoarthritis, left hand; M65.332 Trigger finger, left middle finger; R06.02 Shortness of breath; M81.0 Age-related osteoporosis without current pathological fracture; E03.9 Hypothyroidism, unspecified; M79.605 Pain in left leg

== ENCOUNTER 2025-09-20 10:47 | Emergency (ER) | payer OTHER ==
[~2025-09-20] VITALS: Wt 72.6 kg
[2025-09-20] MEDS ORDERED: ACETAMINOPHEN 325 MG TAB PO ONE (12:15)
[2025-09-20] MEDS ORDERED: AMOX-CLAV 875-1 EACH PO (13:03)
== END 2025-09-20 15:29 | disposition home or self-care (01) ==
LOC: ED 10:47
DX: J01.90 Acute sinusitis, unspecified (principal); J44.9 Chronic obstructive pulmonary disease, unspecified; Z90.710 Acquired absence of both cervix and uterus; Z87.442 Personal history of urinary calculi; Z88.2 Allergy status to sulfonamides; Z20.822 Contact with and (suspected) exposure to COVID-19